=== PATIENT | female | born 1935 | race Caucasian/White ===

== ENCOUNTER → 2018-03-29 12:22 | Outpatient (CLI) | payer MEDICARE, OTHER, SELFPAY | PROVIDERS: Family Provider Physician Assistant; PCP Physician Assistant; Visit Provider Physician Assistant | DX: R30.0 Dysuria (principal) | CPT/HCPCS: 87086 ==

== ENCOUNTER → 2018-11-30 15:02 | Outpatient (CLI) | payer MEDICARE, OTHER, SELFPAY ==
[2018-11-30 15:56] LABS: Add Manual Diff / Slide Review NO; Basophils Absolute Auto 0 /uL (0-100); Basophils Percent Auto 0.6 % (0-2); Eosinophils Absolute Auto 100 /uL (0-450); Eosinophils Percent Auto 1.4 % (2-4); Hematocrit 42.5 % (36-46); Hemoglobin 14.2 g/dL (12.0-16.0); Lymphocytes Absolute Auto 1500 /uL (1100-4500); Lymphocytes Percent Auto 23.4 % (25-40); Mean Corpuscular HGB Conc 33.5 % (30-36); Mean Corpuscular Hemoglobin 33.2 PG (26-34); Mean Corpuscular Volume 99.2 fL (80-100); Monocytes Absolute Auto 600 /uL (0-900); Monocytes Percent Auto 9.5 % (3-14); Neutrophils Absolute Auto 4200 /uL (1500-7000); Neutrophils Percent Auto 65.1 % (50-75); Platelet Count 374 X10^3/uL (150-400); Red Blood Cell Count 4.29 X10^6/uL (4.0-5.2); Red Cell Distribution Width 13.8 % (11.6-14.8); White Blood Cell Count 6.5 X10^3/uL (4.5-11.0)
[2018-11-30 16:06] LABS: Carbon Dioxide 28 mmol/L (22-32); Chloride 101 mmol/L (98-107); HEMOLYSIS < 15 (0-50); Potassium 4.2 mmol/L (3.4-5.1); Sodium 140 mmol/L (137-145)
== END ==
PROVIDERS: PCP Physician Assistant; Visit Provider Orthopaedic Surgery
DX: M16.10 Unilateral primary osteoarthritis, unspecified hip (principal); Z01.818 Encounter for other preprocedural examination; Z01.812 Encounter for preprocedural laboratory examination
CPT/HCPCS: 80051; 85025; 93005

== ENCOUNTER 2018-12-31 08:15 | Inpatient (IN) | payer MEDICARE, OTHER, SELFPAY ==
[2018-12-17 14:02] VITALS: BMI 30.1
[2018-12-31] VITALS (14 sets, daily range): BP systolic 106–184; BP diastolic 50–84; PULSE 58–71; RESP 9–21; TEMP 35.7–36.6; O2SAT 94–99; BMI 30.1
--- NOTE | 2018-12-31 06:00 | DI.RAD.S_ITS ---
PROCEDURE: XR HIP W PEL IF DONE RT 2V INDICATIONS: SUSAN, right TECHNIQUE: AP pelvis and lateral view of the right hip acquired. COMPARISON: [facility], JOSELITO, HIP 2V LEFT, 01/06/2015, 10:04. [facility], CR, XR PELVIS WITH LATERAL HIP RIGHT, 05/30/2018, 14:19. FINDINGS: Bones: Patient is status post right hip arthroplasty, with hardware components in expected positions. The hip joint appears congruent. Left hip arthroplasty is stable. The visualized bony structures appear intact. Soft tissues: Overlying postoperative changes are noted. No suspicious soft tissue densities. IMPRESSION: Interval right hip arthroplasty. Dictated by: Mairsa Harrell M.D. on 12/31/2018 at 13:01 Approved by: Marisa Harrell M.D. on 12/31/2018 at 13:02
[2018-12-31] MEDS: ACETAMINOPHEN 325 MG TABLET 975 MG PO (08:45)
[2018-12-31] MEDS: LACTATED RINGERS 1,000 ML 42 ML IV (08:45)
[2018-12-31] MEDS: PREGABALIN 75 MG CAPSULE PO (08:46)
--- NOTE | 2018-12-31 09:54 | PM.PREOP ---
Pre-operative Note Interval Note History & Physical reviewed/Exam performed by Physician: Yes Changes to H&P: No
[2018-12-31] MEDS: CLINDAMYCIN 900 MG/50 ML PIGGYBACK 50 MG IV ×2 (10:30→19:51)
--- NOTE | 2018-12-31 11:11 | SUR.OPER ---
Lateral on padded OR bed. Gel axillary roll. Arms secured on padded armboard with pillow supporting top arm. Padded hip positioner braces x4 - anterior and posterior chest and pelvis. Additional gel pad used anterior pelvis. Gel pad under bottom leg from knee to foot and secured with tape over sheet.
[2018-12-31] MEDS: ROPIVACAINE 0.5% PF 5 MG/ML 20ML AMP 60 ML INJ (11:18)
[2018-12-31] MEDS: KETOROLAC 30 MG/ML VIAL IV (11:20)
[2018-12-31] MEDS: MORPHINE 4 MG/ML INJ INJ (11:20)
[2018-12-31] MEDS: TRANEXAMIC ACID 1,000 MG VIAL 1000 MG INJ ×2 (11:22→11:42)
--- NOTE | 2018-12-31 12:13 | PM.OP.1 ---
Operative Date/Time/Diagnoses Date of procedure: 12/31/18 Time of procedure: 12:13 Pre-op diagnosis: Right hip degenerative joint disease Post-op diagnosis: same Procedure & Clinicians Procedure: Right total hip arthroplasty (CPT code 03001 with clinical data assistant) Same procedure as scheduled: Yes Indications: Patient is an 83-year-old female with severe right hip DJD. The patient has pain with activities and at rest, limited ambulation and activity tolerance, difficulties with ADLs, and failure of conservative treatment. We have discussed the nature of condition, treatment options, risks and benefits, and patient elects to proceed with total hip arthroplasty and gives informed consent. Surgeon: Pascual Weiss Buckle Stringer: Deshaun Nash Anesthesia Type: General and Spinal Operative Notes Closure Type: primary Specimen(s): none sent Prosthetic devices, grafts, tissues, transplants, or devices: Acetabulum: Trujillo and Nephew R3 acetabular component size 56 mm Femoral component: Trujillo [employer] Nephew Anthology stem size 8 with high offset Femoral head: 36 mm + 0 cobalt chrome Estimated Blood Loss (mL): 150 Procedure in detail: After satisfaction induction of anesthetic, and administration of IV antibiotics, the patient was positioned in the lateral decubitus position with all bony prominences well padded and pelvic position secured using a hip soil chemist positioning device. Right hip and lower extremity prepped and draped in the usual sterile fashion, 1st dose of intravenous tranexamic acid was administered, then a longitudinal incision was created centered over the greater trochanter and carried sharply through the skin and subcutaneous tissues down to the fascia byron which was divided longitudinally and retracted with a Charnley retractor. External rotators visualize, cut, tagged, and retracted posteriorly, then the capsule was cut in a T-type fashion with the corners tagged and retracted. Hip was dislocated and femoral neck cut made according to preoperative templating. Acetabular retractors then placed, and the acetabular labrum and osteophytes were excised. The acetabulum was then sequentially reamed to 55 mm with an excellent circumferential ream and fit with the trial. The trial component was removed and a permanent size 56 mm Trujillo and Nephew R3 acetabular component was selected, positioned, and impacted with satisfactory position and fixation achieved. Permanent liner was then inserted with the elevated lip directed posteriorly. Soft tissue then removed off the lateral femoral neck in the lateral neck was entered using a box osteotome. T-handled reamers placed down the canal followed by sequential broaching to 8 with the final broach left in place for trial reduction which demonstrated excellent leg length, range of motion, and stability characteristics with a high offset neck and 36 mm +0 trial ball. The trial and broach were removed, and a permanent size 8 high offset Trujillo and Nephew Anthology stem was selected and inserted with excellent position and fixation achieved. Another trial reduction yielded the above characteristics so the trial ball was exchanged for a permanent 36 mm +0 cobalt chrome ball. The hip was irrigated and reduced and excellent leg length range of motion and stability characteristics were achieved and maintained. Periarticular tissues were infiltrated with ropivacaine, Marcaine, and Toradol. The hip was copiously irrigated, and the capsule repaired with #2 Ethibond, and the piriformis was repaired back to the greater trochanter with the same. Fascia byron closed with interrupted #1 Ethibond sutures, and the subcutaneous tissues were closed in 2 layers of 0 Vicryl and 2 0 Vicryl. Skin was closed with pinky and sterile dressings applied. Second dose of tranexamic acid was administered intravenously, and the anesthetic was terminated. Complications: none Condition: stable Disposition: PACU Plan for aftercare: Patient will be admitted to the acute care callahan, and anticipate discharge on postop day 1-2 with follow-up in office in 10-14 days. Outpatient physical therapy will be arranged and patient will continue to observe posterior hip precautions. Patient will continue use of postoperative Lovenox for 10 days postop.
--- NOTE | 2018-12-31 12:19 | P.OP_ITS ---
Operative Date/Time/Diagnoses Date of procedure: 12/31/18 Time of procedure: 12:13 Pre-op diagnosis: Right hip degenerative joint disease Post-op diagnosis: same Procedure & Clinicians Procedure: Right total hip arthroplasty (CPT code 55906 with occupational therapist assistants) Same procedure as scheduled: Yes Indications: Patient is an 83-year-old female with severe right hip DJD. The patient has pain with activities and at rest, limited ambulation and activity tolerance, difficulties with ADLs, and failure of conservative treatment. We have discussed the nature of condition, treatment options, risks and benefits, and patient elects to proceed with total hip arthroplasty and gives informed consent. Surgeon: Pascual Weiss Audiologist: Deshaun Nash Anesthesia Type: General and Spinal Operative Notes Closure Type: primary Specimen(s): none sent Prosthetic devices, grafts, tissues, transplants, or devices: Acetabulum: Trujillo and Nephew R3 acetabular component size 56 mm Femoral component: Trujillo and Nephew Anthology stem size 8 with high offset Femoral head: 36 mm + 0 cobalt chrome Estimated Blood Loss (mL): 150 Procedure in detail: After satisfaction induction of anesthetic, and administration of IV antibiotics, the patient was positioned in the lateral decubitus position with all bony prominences well padded and pelvic position secured using a hip caul puller positioning device. Right hip and lower extremity prepped and draped in the usual sterile fashion, 1st dose of intravenous tranexamic acid was administered, then a longitudinal incision was created centered over the greater trochanter and carried sharply through the skin and subcutaneous tissues down to the fascia byron which was divided longitudinally and retracted with a Charnley retractor. External rotators visualize, cut, tagged, and retracted posteriorly, then the capsule was cut in a T-type fashion with the corners tagged and retracted. Hip was dislocated and femoral neck cut made according to preoperative templating. Acetabular retractors then placed, and the acetabular labrum and osteophytes were excised. The acetabulum was then sequentially reamed to 55 mm with an excellent circumferential ream and fit with the trial. The trial component was removed and a permanent size 56 mm Trujillo and Nephew R3 acetabular component was selected, positioned, and impacted with satisfactory position and fixation achieved. Permanent liner was then inserted with the elevated lip directed posteriorly. Soft tissue then removed off the lateral femoral neck in the lateral neck was entered using a box osteotome. T- handled reamers placed down the canal followed by sequential broaching to 8 with the final broach left in place for trial reduction which demonstrated excellent leg length, range of motion, and stability characteristics with a high offset neck and 36 mm +0 trial ball. The trial and broach were removed, and a permanent size 8 high offset Trujillo and Nephew Anthology stem was selected and inserted with excellent position and fixation achieved. Another trial reduction yielded the above characteristics so the trial ball was exchanged for a permanent 36 mm +0 cobalt chrome ball. The hip was irrigated and reduced and excellent leg length range of motion and stability characteristics were achieved and maintained. Periarticular tissues were infiltrated with ropivacaine, Marcaine, and Toradol. The hip was copiously irrigated, and the capsule repaired with #2 Ethibond, and the piriformis was repaired back to the greater trochanter with the same. Fascia byron closed with interrupted #1 Ethibond sutures, and the subcutaneous tissues were closed in 2 layers of 0 Vicryl and 2 0 Vicryl. Skin was closed with pinky and sterile dressings applied. Second dose of tranexamic acid was administered intravenously, and the anesthetic was terminated. Complications: none Condition: stable Disposition: PACU Plan for aftercare: Patient will be admitted to the acute care callahan, and antic ipate discharge on postop day 1-2 with follow-up in office in 10-14 days. Outpatient physical therapy will be arranged and patient will continue to observe posterior hip precautions. Patient will continue use of postoperative Lovenox for 10 days postop.
--- NOTE | 2018-12-31 12:31 | SUR.PHASEI ---
Report called to floor. Awake/drowsy, Dr. Mcpherson spoke with patient. Continues to deny pain/nausea, ice chips given.
--- NOTE | 2018-12-31 12:56 | SUR.PHASEI ---
1247 to room 228. bed down and locked, call light within reach, clothing bag to closet. Patient awake/drowsy, oriented, status unchanged. SCD's on. No questions/concerns from staff or patient.
[2018-12-31] MEDS: LACTATED RINGERS 1,000 ML 125 ML IV ×2 (13:17→21:58)
--- NOTE | 2018-12-31 14:33 | PT.IPTN ---
Current Diagnoses Unilateral primary osteoarthritis, right hip (12/31/18) Surgery Performed Operation Date: 12/31/18 10:15 Actual Procedures p Total Hip Arthroplasty(Right) - Pascual Weiss MD Physical Therapy Treatment Note M3 PT-IP Subjective Start: 12/31/18 14:31 Freq: NEEDED Status: Active Protocol: Document 12/31/18 14:10 HH (Rec: 12/31/18 14:33 [id number]) Subjective Physical Therapy Visit Type Type Administrative Note Visit Start Time 14:10 Notes Post op R SUSAN posterior approach. Pt arrived at 1330 to AC unit. Pt states she is drowsy and unable to move her R LE yet. Post op booklet was given. Reattempt later this pm / tomorrow am depends on pt's status.
--- NOTE | 2018-12-31 15:18 | PC.NURSE ---
pt arrived from PACU, R eyelid was red and open, apperared to be a skin tear. anesthesiologist in surgery, fax sent to OR to notify him and obtain orders as pt states this is painful. dressing CDI on R hip, no sensation from knees to feet on arrival after duramorph spinal. friend at bedside. Belongings (keys, DL, leonard and cream) place in safe.
--- NOTE | 2018-12-31 16:32 | PT.IPTN ---
Current Diagnoses Unilateral primary osteoarthritis, right hip (12/31/18) Surgery Performed Operation Date: 12/31/18 10:15 Actual Procedures p Total Hip Arthroplasty(Right) - Pascual Weiss MD Physical Therapy Treatment Note M3 PT-IP Subjective Start: 12/31/18 14:31 Freq: NEEDED Status: Active Protocol: Document 12/31/18 16:15 HH (Rec: 12/31/18 16:32 [id number]) Subjective Physical Therapy Visit Type Type Administrative Note Visit Start Time 14:15 Notes Pt is currently sleeping deeply upon assessment. Woke pt up but she still c/o not that oriented. R LE has full sensation but insufficient motor control at R hip and knee. Reattempt PT in tomorrow AM.
[2018-12-31] MEDS: ASPIRIN EC 81 MG TABLET PO (21:40)
[2018-12-31] MEDS: azaTHIOprine 50 MG TABLET 100 MG PO (21:41)
[2019-01-01 03:00] VITALS: BP 167/74; PULSE 66; RESP 18; TEMP 36.6; O2SAT 94
[2019-01-01 05:50] LABS: Hematocrit 34.2 % (36-46); Hemoglobin 11.7 g/dL (12.0-16.0)
[2019-01-01] MEDS: LEVOTHYROXINE 112 MCG TABLET PO (06:18)
[2019-01-01] MEDS: ACETAMINOPHEN 325 MG TABLET 975 MG PO ×3 (06:18→21:02)
[2019-01-01] MEDS: LACTATED RINGERS 1,000 ML 125 ML IV (06:24)
--- NOTE | 2019-01-01 07:26 | P.PN_ITS ---
Subjective Date Patient Seen: 01/01/19 Interval history: Patient seen bedside s/p R. SUSAN by Dr. Weiss on 01/01/19. P atient is POD #1. Pain is well controlled, denies nausea/vomiting. Has not been up with PT yet. Exam Vital Signs (past 8 hours): - 01/01/19 03:00 Temperature 98 F Pulse Rate 66 Respiratory Rate 18 Blood Pressure 167/74 H Pulse Oximetry 94 Oxygen Delivery Method Room Air Oxygen Flow Rate 0 Narrative Exam Narrative: Well-developed, well-nourished, no acute distress. Alert and oriented to person, place, and time. Dressing on operative hip is clean, dry, and intact with no signs of drainage. Minimal erythema and generalized swelling around the surgical site. Neurovascularly intact in the operative extremity with a soft and compressible calf. Range of motion of the operative ankle intact. Objective Labs Result Diagrams: 01/01/19 05:12 Labs: Laboratory Results - last 24 hr 01/01/19 05:12 Hgb 11.7 L Hct 34.2 L Assessment & Plan Post-op Postoperative Procedures Operation Date: 12/31/18 10:15 Actual Procedures Side Surgeon p Total Hip Arthroplasty Right Pascual Weiss MD 1. POD #1 s/p above procedure-PT, pain control. 2. Postoperative anemia due to acute blood loss during surgery-H/H stable at thi s time. Add iron/vitamin C supplements. Stop ASA but continue lovenox Dispo-SNF in 3 days Quality VTE Deep Vein Thrombosis/Pulmonary Embolism Present on Admission: No
[2019-01-01 08:00] VITALS: BP 137/73; PULSE 68; RESP 18; TEMP 36.4; O2SAT 97
[2019-01-01] MEDS: dilTIAZem CD 240 MG CAP PO (09:26)
[2019-01-01] MEDS: LACTOBACILLUS ACIDOPHILUS TABLET 1 EACH PO (09:26)
[2019-01-01] MEDS: ASCORBIC ACID 500 MG TABLET PO (09:26)
[2019-01-01] MEDS: azaTHIOprine 50 MG TABLET 100 MG PO ×2 (09:26→21:03)
[2019-01-01] MEDS: FERROUS SULFATE 325 MG TABLET PO (09:26)
[2019-01-01] MEDS: OXYCODONE IR 5 MG TABLET PO ×2 (09:27→21:11)
[2019-01-01] MEDS: CHOLECALCIFEROL (VITAMIN D3) 5,000 UNIT TABLET 5000 UNIT PO (09:27)
[2019-01-01] MEDS: ENOXAPARIN 40 MG/0.4 ML SYRINGE SUBCUT (09:28)
--- NOTE | 2019-01-01 10:28 | CM.DPC ---
DCP Cont: Faxed initial referral for review to [facility] at fax # [phone]. Fax confirmation scanned in. Jackelyn Rodriguez, [facility] [place]
--- NOTE | 2019-01-01 11:11 | CM.DANOTE ---
Discharge Planning/Care Management DCP: assessment: case received, EMR reviewed and met with pt. Introduced self and role. Pt is an 83 year old female who lives alone, has a daughter who will be coming to stay with her after her planned snf rehab. Admitted 12/31 for a planned R SUSAN. Surgeon: Dr. Weiss Payer: Medicare and [facility] P Admission status: INPT/confirmed by [facility] TENA Handy. Pt says her daughter is encouraging her to have a short snf rehab stay before she comes back home and pt agrees this would be best. SNF choice list: discussed: decision: [facility] (pt went there for rehab in 2016 post L SUSAN). Discussed in Team Rounds with ortho ANURAG Ramirez. Referral packet faxed to [facility] by [facility] Jackelyn. Spoke with Lynn/HANG. She has reviewed case. Needs nursing notes to assess for cognition altho she is assured that pt is A/O at baseline. She will wait for this and then give final ok re ? of their acceptance. P: [facility] at d/c (January 03 or >) Need: PASRR and final ok from [facility] team. CM Discharge Assessment Start: 01/01/19 11:03 Freq: Status: Active Protocol: Document 01/01/19 11:03 ITV (Rec: 01/01/19 11:11 ITV [id number]) Discharge Planning Assessment Advance Directives? Yes Advance Directives on File Yes History Provided By Patient Medical Record Has Patient been admitted in last 30 No days? Prior Living Arrangements Mobile home Household Members none Independent with ADL's Yes Is patient alert and oriented? Yes Patient/Family Preference Long-Term Facility Discharge Plan Long-Term Facility Referrals Initiated Long-Term Whiteboard Updated in Patient Room with Yes name and ext. # of Paint Tester Review Status In Process Next Review Type Continued Stay Review Pre-Anesthesia Assessment Start: 12/17/18 14:02 Freq: Status: Active Protocol: Document 12/17/18 14:02 CAB (Rec: 12/17/18 14:43 CAB [id number]) Pre-Anesthesia Assessment PAC Comment No tape r/t Bullous pemphigus history, skin blisters, tearsPt seems mildly confused, denies any difficulties Patient Information Reviewed Via Phone Assessment Assessment Completed With Patient Diagnostic Results BMP/CMP CBC EKG Comment Labs/ECG @ [facility] 11/30/18 Primary Care Provider Kellie Martínez Seen Specialist in Last 12 Months Yes Specialist Seen Spectroscopist Orthopedist Primary Language Swiss Toddler Guide Required No Height 166.37 cm Weight 83.461 kg Body Mass Index (BMI) 30.1 Hearing Ability Normal Visual Assist Glasses Dentition Type Teeth, Natural Present Dental Implants Barriers to Learning None Comment Pt seems mildly confused, denies any difficulties Hx Anesthesia Reactions Yes: My daughter said They had trouble getting me awake LT SUSAN Hx Family Anesthesia Reaction No Hx Malignant Hyperthermia No Hx Blood Transfusions No Anesthesia Review Requested No Ski Lift Operator No alcohol intake current alcohol intake frequency holidays/special occasions only Smoking Status Never smoker Substance Use Type does not use Pain Present Pain Reported Musculoskeletal Symptoms Abnormal Gait Back Pain Difficulty Walking Joint Pain Muscle Cramps History of Falling (Recent or History of No ) Patient is completely paralyzed or No completely immobile Prosthesis or Orthotic Device Cane Is patient on oxygen? No Does patient have VAN/SOB No Hx Sleep Apnea No Currently Taking a Beta Danielle No Can You Climb a Flight of Stairs Without Yes SOB Hx Chest Pain No Hx SOB No Hx Syncope or Dizziness No Anti-Coagulant Therapy No Has a Weatherization Operations Manager No Cardiac Testing No Hx Pacemaker/ICD No Pacemaker Rep Required? No Diet Type At Home Regular dysphagia Yes Bladder Pattern Nocturia Urinary Catheter Present No Hx Urinary Self Catheterization No Diabetes No Patient No Lactating No Hx Drug Resistant Organism No Presence of External or Internal Medical Yes: Left hip prosthesis Devices Have you traveled outside the [facility] in the last 30 days? Marital Status Lives With none Prior Living Arrangements Mobile home Support System Child/Children Patient Discharge Plan Description Return Home Feels Safe in Current Environment Yes Been Physically Hurt or Threatened By a No Person in Current Environment Do you have thoughts of harming yourself None or others? Are you currently considering suicide? No Do you have a plan to hurt yourself or No Plan others? Do You Have Any Spiritual Beliefs That No May Affect Your HC Choices? Do You Have Any Cultural Practices That No May Affect Your HC Choices? Comment Paul Who Can We Speak to About Patient's Care Family, friends Identifying Code for Release of Patient Declines to issue Information Health Care Proxy/Next of Kin Radha (daughter) Health Care Proxy Emergency Contact Name Radha (daughter) Emergency Contact Advance Directives? Yes Advance Directives on File Yes PAC Instructions Do not shave/clip surgical site Durable medical equipment Medications to take/avoid Nasal antibiotic No ETOH/petroleum product on skin DOS Pre-surgical wash Sturdy shoes/comfortable clothes Do not bring valuables and remove jewelry
[2019-01-01 12:00] VITALS: BP 148/70; PULSE 70; RESP 18; TEMP 36.6; O2SAT 97
--- NOTE | 2019-01-01 13:25 | PT.IIE ---
Addendum entered and electronically signed by Jaret Patel, PT 01/02/19 13:40: Under current condition, pt procedure was originally inadvertently listed as a R TKA. This has been changed to a R SUSAN. 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) Status post surgery (09/09/11) Medical History (Last Updated 12/17/18 @ 14:42 by Cammy Chakraborty RN) Difficulty swallowing (Acute) Fragile skin (Acute) GERD (gastroesophageal reflux disease) (Acute) Sinus drainage (Acute) TIA (transient ischemic attack) (Acute ~2012) Eczema (Chronic Unknown) Hypertension (Chronic Unknown) Hypothyroidism (Chronic Unknown) Osteoarthritis (Chronic Unknown) Physical Therapy Inpatient Evaluation/Re-Eval M1 PT/OT-IP Prior Functional Status Start: 12/31/18 14:31 Freq: NEEDED Status: Active Protocol: Document 01/01/19 09:45 DCW (Rec: 01/01/19 13:25 DC [id number]) Medical Review Prior Functional Status Medical History Reviewed Yes Social History Household Members none Living Arrangements Mobile home Number of Stairs To Enter/Railing? 7 [place]ET[place] /c left ascending rail Home Environment High Toilet Home Equipment Front Wheel Walker Straight Cane Raised Toilet Seat w/Armrests Shower Seat with Backrest M2 PT-IP Current Condition Start: 12/31/18 14:31 Freq: NEEDED Status: Active Protocol: Document 01/01/19 09:45 DCW (Rec: 01/01/19 13:25 DCW [id number]) Physical Therapy Current Condition Current Condition Evaluation Date 01/01/19 Treatment Diagnosis R TKA Onset Date 12/31/18 Precautions Posterior Hip Precautions No Hip Flexion > 90 degrees No Hip Internal Rotation No Hip Adduction Weight Bearing Status Weight Bearing Status Weight Bear as Tolerated M3 PT-IP Subjective Start: 12/31/18 14:31 Freq: NEEDED Status: Active Protocol: Document 01/01/19 09:45 DCW (Rec: 01/01/19 13:25 DCW [id number]) Subjective Physical Therapy Visit Type Type Initial Evaluation Visit Start Time 09:45 Visit Stop Time 10:24 Total Visit Minutes 39 Notes Pt underwent a right TKA on after failure of conservative therapy for hip pain secondary to osteoporosis . Number of TRIM AND BURR OPERATOR Visits 0 Physical Therapy Visit Comments Patient Comments Pt reports her pain has been pretty well controlled, and she is looking forward to getting up and moving around. Therapy Pain Assessment Pain When Pain Assessed At Rest Pain Present Pain Present Pain Reported Location Right Hip Intensity 3 Scale Used Numeric (1 - 10) Description Throbbing M4 PT-IP Mobility and Gait Start: 12/31/18 14:31 Freq: NEEDED Status: Active Protocol: Document 01/01/19 09:45 DCW (Rec: 01/01/19 13:25 DCW [id number]) PT-Bed Mobility Assessment Rolling Type of Rolling Log Rolling Roll to Right Level of Assist Standby Assistance Supine to Sit Supine to Sit Standby Assistance Scooting Scooting to Edge of Bed Independent PT-Transfer Assessment Sit to and From Stand Sit to and from Stand Standby Assistance Equipment Transfer Assistive Device Bed Rail Gait Belt Front Wheeled Walker Orthotic/Prosthetic Devices or Brace: No Transfers Transfer Destination Bed Chair Toilet Transfer Technique Stand Step Pivot Transfer Ability Level of Assist Standby Assistance Comments Mobility Comments verbal cues to maintain hip precautions Gait Assessment Gait Gait Assistance Required: Standby Assistance Distance (Feet) 300 Able to Maintain Weight Bearing Status Yes During Gait Assistive Devices Assistive Device Gait Belt Front Wheeled Walker Orthotic/Prosthetic Devices or Brace: No Gait Deviations General Gait Pattern Decreased Stride Length Flexed Trunk Factors Limiting Gait Function Factors Limiting Gait Function Pain Comments Gait Comments Pt ambulated well, no concerns with her current gait pattern . Pt showed appropriate step- through gait. Stair Climbing Assessment Comments Stair Climbing Comments Not assessed PT-Balance Assessment Sitting Balance and Reactions Static Sitting Balance Ability Normal Dynamic Sitting Balance Ability Normal Standing Balance and Reactions Static Standing Balance Ability Good Dynamic Standing Balance Ability Good M5 PT-IP Objective Assessments Start: 12/31/18 14:31 Freq: NEEDED Status: Active Protocol: Document 01/01/19 09:45 DCW (Rec: 01/01/19 13:25 [facility] [id number]) Orientation Orientation/Cognition Orientation Name Birthday Month Date Year Place Situation Language Function Ability No Deficits Noted Safety Awareness Understands Safety Issues Memory Description No Deficits Noted Gross Range of Motion Upper Extremity ROM Assessment Within Functional Limits Lower Extremity ROM Assessment Right Impaired Impairments Pt able to move hip within limits of hip precautions Strength Upper Extremity Strength Assessment Within Functional Limits Lower Extremity Strength Assessment Left Impaired M6 PT-IP Treatment Start: 12/31/18 14:31 Freq: NEEDED Status: Active Protocol: Document 01/01/19 09:45 DCW (Rec: 01/01/19 13:25 [facility] [id number]) Physical Therapy Treatment Exercises Exercises Ankle Pumps Gluteal Sets Quad Sets Heel Slides Supine Hip Abduction Education Education Provided Precautions Post-Op Packet M7 PT-IP Assessment and Plan Start: 12/31/18 14:31 Freq: NEEDED Status: Active Protocol: Document 01/01/19 09:45 DC (Rec: 01/01/19 13:25 [facility] [id number]) PT Summary Assessment and Plan Potential Rehabilitation Potential Excellent Status of Condition at Evaluation Stable Summary Impairments Pain Strength Gait Assessment Summary Pt presents POD #1 doing very well. Pt exhibits good pain control, and is able to get up and ambulate in the hallway using FWW with SBA. Pt shows no safety concerns, and was able to recite her hip precautions. Pt reports she has been doing some of her post-op exercises already. Unable to test pt on stairs due to time constraints, pt should be tested next visit to determine pt's ability to return home, as she lives alone and will need to ascend 7 steps to enter her home. Goals Bed Mobility Goal Independent Transfer Goal Independent Gait Goal Independent Front Wheel Walker Gait Distance 500 Other Goals Ascend/Descend 3 steps x2 /c L rail Days to Meet Goals 2 Frequency of Treatment Frequency Of Treatment Twice a Day Treatment Plan Physical Therapy Treatment Plan Gait Training Therapeutic Exercise Post Op Education Other Recommendations and Next Treatment Stairs, Ambulation, review Focus post-op TherEx Recommendations To Nursing Amount of Assist Needed Standby Assistance Discharge Recommendations PT Discharge Recommendations Home SNF Rehab Other Discharge Recommendations Home vs SNF pending pt's ability to do stairs
[2019-01-01 15:50] VITALS: BP 133/77; PULSE 66; RESP 20; TEMP 36.6; O2SAT 99
--- NOTE | 2019-01-01 16:08 | PT.IPTN ---
Current Diagnoses Unilateral primary osteoarthritis, right hip (12/31/18) Surgery Performed Operation Date: 12/31/18 10:15 Actual Procedures p Total Hip Arthroplasty(Right) - Pascual Weiss MD Physical Therapy Treatment Note M2 PT-IP Current Condition Start: 12/31/18 14:31 Freq: NEEDED Status: Active Protocol: Document 01/01/19 09:45 DCW (Rec: 01/01/19 13:25 DCW [id number]) Physical Therapy Current Condition Current Condition Evaluation Date 01/01/19 Treatment Diagnosis R TKA Onset Date 12/31/18 Precautions Posterior Hip Precautions No Hip Flexion > 90 degrees No Hip Internal Rotation No Hip Adduction Weight Bearing Status Weight Bearing Status Weight Bear as Tolerated M3 PT-IP Subjective Start: 12/31/18 14:31 Freq: NEEDED Status: Active Protocol: Document 01/01/19 14:00 CLB (Rec: 01/01/19 16:08 CLB [id number]) Subjective Physical Therapy Visit Type Type Treatment Note Visit Start Time 14:00 Visit Stop Time 14:30 Total Visit Minutes 30 Number of ENERGY AUDITOR Visits 1 Physical Therapy Visit Comments Patient Comments Pt willing to do therapy. Therapy Pain Assessment Pain When Pain Assessed During Mobility Pain Present Pain Present Pain Reported Location Right Hip Intensity 5 Scale Used Numeric (1 - 10) M4 PT-IP Mobility and Gait Start: 12/31/18 14:31 Freq: NEEDED Status: Active Protocol: Document 01/01/19 14:00 CLB (Rec: 01/01/19 16:08 CLB [id number]) PT-Bed Mobility Assessment Supine to Sit Supine to Sit Standby Assistance Scooting Scooting to Edge of Bed Minimal Assistance PT-Transfer Assessment Sit to and From Stand Sit to and from Stand Standby Assistance Equipment Transfer Assistive Device Gait Belt Front Wheeled Walker Orthotic/Prosthetic Devices or Brace: No Transfers Transfer Destination Bed Transfer Technique Stand Step Pivot Transfer Ability Level of Assist Standby Assistance Comments Mobility Comments verbal cues to maintain hip precautions and Min A with use of draw sheet to EOB. Gait Assessment Gait Gait Assistance Required: Standby Assistance Distance (Feet) 300 Able to Maintain Weight Bearing Status Yes During Gait Assistive Devices Assistive Device Gait Belt Front Wheeled Walker Orthotic/Prosthetic Devices or Brace: No Gait Deviations General Gait Pattern Decreased Stride Length Flexed Trunk Factors Limiting Gait Function Factors Limiting Gait Function Limited Range of Motion Pain Comments Gait Comments Pt continues to ambulate with good gait quality with cues for safety awareness with obstacles in hallway. Stair Climbing Assessment Comments Stair Climbing Comments Pt did not feel ready to do stairs. M5 PT-IP Objective Assessments Start: 12/31/18 14:31 Freq: NEEDED Status: Active Protocol: Document 01/01/19 09:45 DCW (Rec: 01/01/19 13:25 DCW [id number]) Orientation Orientation/Cognition Orientation Name Birthday Month Date Year Place Situation Language Function Ability No Deficits Noted Safety Awareness Understands Safety Issues Memory Description No Deficits Noted Gross Range of Motion Upper Extremity ROM Assessment Within Functional Limits Lower Extremity ROM Assessment Right Impaired Impairments Pt able to move hip within limits of hip precautions Strength Upper Extremity Strength Assessment Within Functional Limits Lower Extremity Strength Assessment Left Impaired M6 PT-IP Treatment Start: 12/31/18 14:31 Freq: NEEDED Status: Active Protocol: Document 01/01/19 14:00 CLB (Rec: 01/01/19 16:08 CLB [id number]) Physical Therapy Treatment Exercises Exercises Gluteal Sets Quad Sets Heel Slides Supine Hip Abduction Education Education Provided Precautions Post-Op Packet M7 PT-IP Assessment and Plan Start: 12/31/18 14:31 Freq: NEEDED Status: Active Protocol: Document 01/01/19 14:00 CLB (Rec: 01/01/19 16:08 CLB [id number]) PT Summary Assessment and Plan Potential Rehabilitation Potential Excellent Status of Condition at Evaluation Stable Summary Impairments Pain Strength Gait Assessment Summary Pt able to ambulate ~300ft with cues for safety awareness with obstacles in hallway. Pt needed SBA for supine-sit but required Min A to scoot to EOB. Pt stated she spoke with Dianne GILMORE and has set up going to [facility] due to lack of assistance at home as pt lives alone and would not be able to safely be alone at this time. Goals Bed Mobility Goal Independent Transfer Goal Independent Gait Goal Independent Front Wheel Walker Gait Distance 500 Other Goals Ascend/Descend 3 steps x2 /c L rail Days to Meet Goals 2 Frequency of Treatment Frequency Of Treatment Twice a Day Treatment Plan Physical Therapy Treatment Plan Gait Training Therapeutic Exercise Post Op Education Other Recommendations and Next Treatment ambulation, ther ex. Focus Recommendations To Nursing Amount of Assist Needed Standby Assistance Discharge Recommendations PT Discharge Recommendations SNF Rehab Other Discharge Recommendations SNF rehab as pt lives alone and has no assistance.
[2019-01-01 20:00] VITALS: BP 154/84; PULSE 67; RESP 22; TEMP 36.3; O2SAT 100
[2019-01-01 21:51] VITALS: O2SAT 97
[2019-01-02] VITALS (8 sets, daily range): BP systolic 105–176; BP diastolic 51–77; PULSE 67–80; RESP 16–18; TEMP 36.6–37.4; O2SAT 95–98
[2019-01-02] MEDS: LEVOTHYROXINE 112 MCG TABLET PO (06:03)
[2019-01-02] MEDS: dilTIAZem CD 240 MG CAP PO (08:30)
[2019-01-02] MEDS: azaTHIOprine 50 MG TABLET 100 MG PO ×2 (08:30→21:56)
[2019-01-02] MEDS: CHOLECALCIFEROL (VITAMIN D3) 5,000 UNIT TABLET 5000 UNIT PO (08:30)
[2019-01-02] MEDS: LACTOBACILLUS ACIDOPHILUS TABLET 1 EACH PO (08:30)
[2019-01-02] MEDS: ONDANSETRON 4 MG ODT PO (08:31)
[2019-01-02] MEDS: ASCORBIC ACID 500 MG TABLET PO (08:33)
[2019-01-02] MEDS: FERROUS SULFATE 325 MG TABLET PO (08:33)
[2019-01-02] MEDS: ENOXAPARIN 40 MG/0.4 ML SYRINGE SUBCUT (08:34)
[2019-01-02] MEDS: OXYCODONE IR 5 MG TABLET PO (08:40)
--- NOTE | 2019-01-02 10:30 | P.PN_ITS ---
Subjective Date Patient Seen: 01/02/19 Time Patient Seen: 10:28 Interval history: 83 year old female seen at bedside who is POD#2 s/p right total hip arthoplasty. She has been somewhat slow to mobilize, initially refusing PT this morning. She was later able to do some walking in the halls. She has had some increase in pain today that responded well to oxycodone. Voiding independently and tolerating food well. She reports no issues with chest pain, shortness of breath or calf tenderness. Exam Vital Signs (past 8 hours): - 01/02/19 04:30 01/02/19 08:00 01/02/19 09:23 Temperature 97.9 F 99 F Pulse Rate 73 80 76 Respiratory Rate 16 16 Blood Pressure 155/75 H 174/66 H 115/55 L Pulse Oximetry 96 97 Oxygen Delivery Method Room Air Oxygen Flow Rate 0 Narrative Exam Narrative: 83 year old female resting comfortably in bed in no acute distress. Alert and oriented. Dressing in place over right hip is clean, dry and intact with no visible drainage. Able to freely dorsiflex/plantar flex the foot. Sensation intact in distal extremity with 2+ distal pulses. Calves are soft and nontender bilat erally. Objective Labs Result Diagrams: 01/01/19 05:12 Assessment & Plan Post-op Postoperative Procedures Operation Date: 12/31/18 10:15 Actual Procedures Side Surgeon p Total Hip Arthroplasty Right Pascual Weiss MD 1. She continues to progress slowly post op. She has no support at home, daughter will be flying in next week but will have difficulty assisting with care. Likely discharge to [facility] tomorrow pending approval. 2. Continue to mobilize with PT. 3. Continue pain control. Quality VTE Deep Vein Thrombosis/Pulmonary Embolism Present on Admission: No
--- NOTE | 2019-01-02 10:30 | CM.DPC ---
Addendum entered by Gerda Solorzano R.N. 01/02/19 11:48: Emily came by to assess patient. Stated that they will be able to accept her. She will call back later today for a greens picker time tomorrow. As soon as this is confirmed, will let patient know. Addendum entered by Gerda Solorzano R.N. 01/02/19 10:43: Spoke to Emily at [facility]. She will be coming by today to see patient. She will check in at care management office. Original Note: DCP Cont: Called Emily at [facility] to follow up regarding accepting patient tomorrow. She is asking for nursing notes. Let her know that this bottle caser would send this over, along with latest prog note. Only noted one nursing note from 12-31. Sent this over, along with P.T. notes, and History and physical. Consulted with ortho PAC regarding plan. Let her know that she may be able to discharge to [facility] tomorrow, pending review. Emily at [facility] stated that patient has been there before. P: DCP to follow closely. Emily will call later today after reviewing and will also have time that they can pick her up as well. If further note is needed, will ask nurse if she can place a note for today. PASSR has already been completed. eGrda Solorzano RN/Commodity Management Specialist
--- NOTE | 2019-01-02 11:18 | PC.NURSE ---
Pt is A&Ox3, she states that she had 6/10 pain. Given 1 percolone and some zofran for nausea po. Pt able to eat breakfast this morning and ambulated with PT around 0930. She is using fww and tolerating well. Pt is Alert and compliant with all care. She is resting now comfortably in bed. Drssing to hip cdi, will be changed to water proof dressing before she is discharged.
--- NOTE | 2019-01-02 11:34 | PT.IPTN ---
Current Diagnoses Unilateral primary osteoarthritis, right hip (12/31/18) Surgery Performed Operation Date: 12/31/18 10:15 Actual Procedures p Total Hip Arthroplasty(Right) - Pascual Weiss MD Physical Therapy Treatment Note M2 PT-IP Current Condition Start: 12/31/18 14:31 Freq: NEEDED Status: Active Protocol: Document 01/01/19 09:45 DCW (Rec: 01/01/19 13:25 DCW [id number]) Physical Therapy Current Condition Current Condition Evaluation Date 01/01/19 Treatment Diagnosis R TKA Onset Date 12/31/18 Precautions Posterior Hip Precautions No Hip Flexion > 90 degrees No Hip Internal Rotation No Hip Adduction Weight Bearing Status Weight Bearing Status Weight Bear as Tolerated M3 PT-IP Subjective Start: 12/31/18 14:31 Freq: NEEDED Status: Active Protocol: Document 01/02/19 09:30 CLB (Rec: 01/02/19 11:34 CLB [id number]) Subjective Physical Therapy Visit Type Type Treatment Note Visit Start Time 09:30 Visit Stop Time 10:00 Total Visit Minutes 30 Number of CERTIFIED REAL ESTATE APPRAISER Visits 2 Physical Therapy Visit Comments Patient Comments Pt willing to do therapy. Therapy Pain Assessment Pain When Pain Assessed During Mobility Pain Present Pain Present Pain Reported Location Right Hip Intensity 3 Scale Used Numeric (1 - 10) M4 PT-IP Mobility and Gait Start: 12/31/18 14:31 Freq: NEEDED Status: Active Protocol: Document 01/02/19 09:30 CLB (Rec: 01/02/19 11:34 CLB [id number]) PT-Bed Mobility Assessment Sit to Supine Sit to Supine Minimal Assistance PT-Transfer Assessment Sit to and From Stand Sit to and from Stand Standby Assistance Equipment Transfer Assistive Device Gait Belt Front Wheeled Walker Orthotic/Prosthetic Devices or Brace: No Transfers Transfer Destination Bed Transfer Technique Stand Step Pivot Transfer Ability Level of Assist Standby Assistance Comments Mobility Comments Pt continues to require verbal cues for hip precaution with sit<>stand. And Min A of RLE into bed. Gait Assessment Gait Gait Assistance Required: Standby Assistance Distance (Feet) 150 Able to Maintain Weight Bearing Status Yes During Gait Assistive Devices Assistive Device Gait Belt Front Wheeled Walker Orthotic/Prosthetic Devices or Brace: No Gait Deviations General Gait Pattern Antalgic Flexed Trunk M5 PT-IP Objective Assessments Start: 12/31/18 14:31 Freq: NEEDED Status: Active Protocol: Document 01/01/19 09:45 DCW (Rec: 01/01/19 13:25 DCW [id number]) Orientation Orientation/Cognition Orientation Name Birthday Month Date Year Place Situation Language Function Ability No Deficits Noted Safety Awareness Understands Safety Issues Memory Description No Deficits Noted Gross Range of Motion Upper Extremity ROM Assessment Within Functional Limits Lower Extremity ROM Assessment Right Impaired Impairments Pt able to move hip within limits of hip precautions Strength Upper Extremity Strength Assessment Within Functional Limits Lower Extremity Strength Assessment Left Impaired M6 PT-IP Treatment Start: 12/31/18 14:31 Freq: NEEDED Status: Active Protocol: Document 01/02/19 09:30 CLB (Rec: 01/02/19 11:34 CLB [id number]) Physical Therapy Treatment Exercises Exercises Gluteal Sets Quad Sets Heel Slides Supine Hip Abduction Education Education Provided Precautions Other Treatments Other Treatment Performed seated knee flx/ext M7 PT-IP Assessment and Plan Start: 12/31/18 14:31 Freq: NEEDED Status: Active Protocol: Document 01/02/19 09:30 CLB (Rec: 01/02/19 11:34 CLB [id number]) PT Summary Assessment and Plan Potential Rehabilitation Potential Excellent Status of Condition at Evaluation Stable Summary Impairments Pain Strength Gait Assessment Summary Pt c/o increased pain today compared to yesterday but rated her pain 3/10. Pt recalled 2/3 precautions. Pt is steady with gait requiring cues during turns to prevent hip IR. Pt would benefit from SNF rehab to improve safety and functional independence. Goals Bed Mobility Goal Independent Transfer Goal Independent Gait Goal Independent Front Wheel Walker Gait Distance 500 Other Goals Ascend/Descend 3 steps x2 /c L rail Days to Meet Goals 2 Frequency of Treatment Frequency Of Treatment Twice a Day Treatment Plan Physical Therapy Treatment Plan Gait Training Therapeutic Exercise Post Op Education Other Recommendations and Next Treatment ambulation, ther ex. Focus Recommendations To Nursing Amount of Assist Needed Standby Assistance Discharge Recommendations PT Discharge Recommendations SNF Rehab Other Discharge Recommendations SNF rehab as pt lives alone and has no assistance.
--- NOTE | 2019-01-02 11:56 | CM.DPC ---
DCP Cont: Emily from [facility] called back. 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 Went ahead and updated patient. Patient alert and pleasant. She stated that she remembers some of the physical therapists at [facility] when she was there before. She stated that she had her other hip done approximately 3 years ago, and went thee then. P: DCP to follow up with ortho in the morning to ensure that discharge orders are completed. Will complete PASSR now, so it will be ready for tomorrow. Will update nurse in the morning regarding discharge to [facility]. Gerda Solorzano RN/[employer]b Net Programmer
[2019-01-02] MEDS: ACETAMINOPHEN 325 MG TABLET 975 MG PO ×2 (14:16→21:56)
--- NOTE | 2019-01-02 14:45 | PT.IPTN ---
Current Diagnoses Unilateral primary osteoarthritis, right hip (12/31/18) Surgery Performed Operation Date: 12/31/18 10:15 Actual Procedures p Total Hip Arthroplasty(Right) - Pascual Weiss MD Physical Therapy Treatment Note M2 PT-IP Current Condition Start: 12/31/18 14:31 Freq: NEEDED Status: Active Protocol: Document 01/01/19 09:45 DCW (Rec: 01/01/19 13:25 DCW [id number]) Physical Therapy Current Condition Current Condition Evaluation Date 01/01/19 Treatment Diagnosis R SUSAN Onset Date 12/31/18 Precautions Posterior Hip Precautions No Hip Flexion > 90 degrees No Hip Internal Rotation No Hip Adduction Weight Bearing Status Weight Bearing Status Weight Bear as Tolerated M3 PT-IP Subjective Start: 12/31/18 14:31 Freq: NEEDED Status: Active Protocol: Document 01/02/19 14:45 GGD (Rec: 01/02/19 15:06 GGD [id number]) Subjective Physical Therapy Visit Type Type Treatment Note Visit Start Time 14:05 Visit Stop Time 14:45 Total Visit Minutes 40 Number of REPORTS ANALYSIS MANAGER Visits 3 Physical Therapy Visit Comments Patient Comments Pt states she needs to use the bathroom Therapy Pain Assessment Pain When Pain Assessed During Mobility Pain Present Pain Present Pain Reported Location Right Hip Intensity 4 Scale Used Numeric (1 - 10) M4 PT-IP Mobility and Gait Start: 12/31/18 14:31 Freq: NEEDED Status: Active Protocol: Document 01/02/19 14:45 GGD (Rec: 01/02/19 15:06 GGD [id number]) PT-Bed Mobility Assessment Sit to Supine Sit to Supine Minimal Assistance Scooting Scooting to Edge of Bed Standby Assistance PT-Transfer Assessment Sit to and From Stand Sit to and from Stand Standby Assistance Equipment Transfer Assistive Device Gait Belt Front Wheeled Walker Orthotic/Prosthetic Devices or Brace: No Transfers Transfer Destination Bed Toilet Transfer Ability Level of Assist Contact Guard Assistance Gait Assessment Gait Gait Assistance Required: Standby Assistance Distance (Feet) 200 Able to Maintain Weight Bearing Status Yes During Gait Assistive Devices Assistive Device Gait Belt Front Wheeled Walker Orthotic/Prosthetic Devices or Brace: No Gait Deviations General Gait Pattern Antalgic Flexed Trunk M5 PT-IP Objective Assessments Start: 12/31/18 14:31 Freq: NEEDED Status: Active Protocol: Document 01/01/19 09:45 DCW (Rec: 01/01/19 13:25 DCW [id number]) Orientation Orientation/Cognition Orientation Name Birthday Month Date Year Place Situation Language Function Ability No Deficits Noted Safety Awareness Understands Safety Issues Memory Description No Deficits Noted Gross Range of Motion Upper Extremity ROM Assessment Within Functional Limits Lower Extremity ROM Assessment Right Impaired Impairments Pt able to move hip within limits of hip precautions Strength Upper Extremity Strength Assessment Within Functional Limits Lower Extremity Strength Assessment Left Impaired M6 PT-IP Treatment Start: 12/31/18 14:31 Freq: NEEDED Status: Active Protocol: Document 01/02/19 14:45 GGD (Rec: 01/02/19 15:06 GGD [id number]) Physical Therapy Treatment Exercises Exercises Ankle Pumps Gluteal Sets Quad Sets Heel Slides Supine Hip Abduction Seated Knee Flexion/Extension Education Education Provided Precautions M7 PT-IP Assessment and Plan Start: 12/31/18 14:31 Freq: NEEDED Status: Active Protocol: Document 01/02/19 14:45 GGD (Rec: 01/02/19 15:06 GGD [id number]) PT Summary Assessment and Plan Summary Assessment Summary Pt progressing tolerance to gait and distance. She need min cues for sit to stand with foot placement. She need mod cues for turns and hip precautions. Frequency of Treatment Frequency Of Treatment Twice a Day Treatment Plan Physical Therapy Treatment Plan Gait Training Therapeutic Exercise Post Op Education Other Recommendations and Next Treatment ambulation, ther ex. Focus Recommendations To Nursing Amount of Assist Needed Standby Assistance Discharge Recommendations PT Discharge Recommendations SNF Rehab
[2019-01-03] MEDS: HYDROCODONE/ACET 5/325 TABLET 1 TAB PO ×3 (01:34→11:54)
[2019-01-03] MEDS: LEVOTHYROXINE 112 MCG TABLET PO (05:45)
[2019-01-03] MEDS: ACETAMINOPHEN 325 MG TABLET 975 MG PO (05:45)
--- NOTE | 2019-01-03 07:33 | PM.DS.1 ---
History of Present Illness Date Patient Seen: 01/03/19 Chief complaint: [id number] Right Total Hip Arthroplasty Narrative: Patient seen bedside by Teetee Mcfarland PA-C. Pain is well controlled. No chest pain, shortness of breath. Patient ready for discharge to SNF today. Discharge Providers Date of admission: 12/31/18 08:15 Discharge Date: 01/03/19 Primary care physician: Kellie Martníez PA-C Consults: 12/31/18 12:55 Consult to Discharge Planning Routine Comment: Consult to Physical Therapy Evaluate & Treat Comment: Physician Instructions: post op SUSAN protocol Consult to Respiratory Therapy Evaluate & Treat Comment: Physician Instructions: Evaluate and treat Discharge provider: Charu Mcduffie PA-C Summary Discharge Diagnosis: Right hip osteoarthritis Hospital Course: Patient was admitted to the hospital on Patient tolerated the procedure well with no major complications. They were transferred to the acute care floor where they were placed on the standard joint replacement pathway and protocol. They were seen by physical therapy who recommended that they be discharged to a SNF. They were stable and ready for discharge on 01/03/19. Exam Vital Signs (past 8 hours): Oxygen Delivery Method Room Air Oxygen Flow Rate 0 Narrative Exam Narrative: Well-developed, well-nourished, no acute distress. Alert and oriented to person, place, and time. Dressing on operative hip is clean, dry, and intact with no signs of drainage. Minimal erythema and generalized swelling around the surgical site. Neurovascularly intact in the operative extremity with a soft and compressible calf. Range of motion of the operative ankle intact. Objective Labs Result Diagrams: 01/01/19 05:12 Discharge Plan Discharge Plan Patient Disposition: SNF Under care of provider: facility provider I certify the postop hospital nursing home care is medically necessary on a continuing basis for any conditions for which he/ she received care during this hospitalization.: Yes The receiving facility has agreed to accept transfer and provide medical treatment.: Yes Discharge Med Rec/Prescriptions Prescriptions: New hydrocodone-acetaminophen 5-325 mg Tablet 1 tab PO Q4HR PRN (Reason: Pain, Moderate (4-6)) 2 Days Qty: 12 RF: 0 ascorbic acid (vitamin C) [Vitamin C] 500 mg Tablet 500 mg PO DAILY Qty: 0 RF: 0 ferrous sulfate 325 mg (65 mg iron) Tablet 325 mg PO DAILY Qty: 0 RF: 0 hydroxyzine pamoate 25 mg Capsule 25 mg PO Q6HR PRN (Reason: Spasms) Qty: 0 RF: 0 enoxaparin [Lovenox] 40 mg/0.4 mL Syringe 40 mg subcut DAILY 6 Days Qty: 2.4 RF: 0 magnesium hydroxide [Milk of Magnesia] 400 mg/5 mL Suspension 30 ml PO NOW PRN (Reason: Constipation) Qty: 30 RF: 0 Continued azathioprine 50 mg Tablet 100 mg PO BID RF: 0 acetaminophen 325 MG tablet 325 mg PO PRN PRN (Reason: pain) Qty: 0 RF: 0 betamethasone dipropionate 0.05 % cream 1 gene Topical SEE INSTRUCTIONS Qty: 0 RF: 0 cholecalciferol (vitamin D3) [Vitamin D3] 5,000 unit Tablet 5,000 unit PO DAILY Qty: 0 RF: 0 [PROBIOTIC] 1 cap PO QDAY Qty: 0 RF: 0 cetirizine [Aller-Will] 10 mg tablet 10 mg PO DAILY PRN (Reason: m) RF: 0 Tylenol Sinus Severe 5-325-200 mg tablet 2 tab PO Q4-6H PRN (Reason: Systemic Signs And Symptoms) RF: 0 diltiazem HCl 240 mg capsule,extended release 24hr 240 mg PO QDAY Qty: 90 RF: 3 levothyroxine 112 mcg tablet 112 mcg PO QAM Qty: 90 RF: 3 Disabled Parking Permit 1 ea miscellaneous DIRECTED RF: 0 Follow up/Referrals: Kellie Martínez PA-C [Primary Care Provider] - Pascual Weiss MD [Physician] - (Follow up in the office at your previously scheduled post-operative appointment.) Discharge Health Status Multidrug resistant organism: No MDRO Precautions: [place] Provider Discharge Instructions Diet: Diet as Tolerated Activity: Weight bearing as tolerated, follow posterior hip precautions. Use walker until cleared by Physical therapy Cold/Heat Therapy: Apply ice to affected area for 20 minutes at a time at least hourly while awake. Other treatments: Please refer to [facility] path book for other questions and concerns Skin/Wound/Dressing Care Report to your healthcare provider any signs of infection, such as:: chills, fever, night sweats, increased pain, unusual drainage and unusual redness Dressing: Keep dressing clean, dry, and intact. May shower with it in place but no soaking. Special Rehabilitation Services Reason for rehabilitation: Post-operative therapy Rehab type: Physical therapy and Occupational therapy Visit Report/Discharge Packet Instructions: Hip Replacement, DI for Hip Replacement Stand Alone Forms: Surgery Discharge Discharge Data Primary Care Provider: Kellie Martínez Attending Provider: Pascual Weiss Admit Date/Time: 12/31/18 08:15 Discharges patient from system. Discharge Date/Time: 01/03/19 12:30 Quality VTE Deep Vein Thrombosis/Pulmonary Embolism Present on Admission: No
[2019-01-03 08:00] VITALS: BP 172/59; PULSE 67; RESP 18; TEMP 37.1; O2SAT 97
[2019-01-03] MEDS: MAGNESIUM HYDROXIDE 30 ML UDC PO (08:16)
[2019-01-03] MEDS: LACTOBACILLUS ACIDOPHILUS TABLET 1 EACH PO (08:19)
[2019-01-03] MEDS: ASCORBIC ACID 500 MG TABLET PO (08:19)
[2019-01-03] MEDS: azaTHIOprine 50 MG TABLET 100 MG PO (08:20)
[2019-01-03] MEDS: FERROUS SULFATE 325 MG TABLET PO (08:20)
[2019-01-03] MEDS: dilTIAZem CD 240 MG CAP PO (08:21)
[2019-01-03] MEDS: CHOLECALCIFEROL (VITAMIN D3) 5,000 UNIT TABLET 5000 UNIT PO (08:21)
--- NOTE | 2019-01-03 08:34 | CM.DPC ---
DCP Cont: Updated nurse, Mary, that patient is to go to [facility] today at noon pickling grader. She is working on giving patient something for her bowels. Charu Mcduffie, PAC, signed med sheets. Will have Jackelyn fax [facility] PASSR, med sheets, prescriptions, as well as discharge summary to [facility]. Patient is aware, alert this morning. P: Patient is to be picked up by [facility] at noon today. Gerda Solorzano RN/Business Risk Analyst
[2019-01-03] MEDS: SODIUM CHLORIDE 0.9% FLUSH 10 ML IV (09:23)
[2019-01-03] MEDS: ENOXAPARIN 40 MG/0.4 ML SYRINGE SUBCUT (09:23)
--- NOTE | 2019-01-03 09:47 | PC.NURSE ---
Addendum entered by Mary Rivas R.N. 01/03/19 12:48: TSF - [facility] transport arrived, belongings gathered, including glasses, clothing, shoes, cell phone and color receiver, own cane and fww, valuables from safe were accounted for and returned, paperwork provided to transport personnel, report called to Christian in admissions at [facility]. Addendum entered by Mary Rivas R.N. 01/03/19 12:06: PAIN - given norco 5/325mg x 1 tab with lunch prior to tsf. Original Note: AM NOTE - assist x 1 person up chair for breakfast, states r hip discomfort 4 on scale 0/10, ra 95%, HR 66, + bt and flatus, no bm since surg, discussed constipation and narcotics, given prune juice this am and spoke to Charu OSBORN and rec'd new orders for MOM and suppos, pt will wait until after PT for suppos, given norco tab x 1, later am up phys therapy, ambul w/fww into hallway, on return, slowly and gently removed the bulky dsg r hip as pt has hx auto immune skin disorder, no breakdown or blisters noted, some redness at margins, replaced with coversite dsg.
--- NOTE | 2019-01-03 09:50 | PT.IPTN ---
Current Diagnoses Unilateral primary osteoarthritis, right hip (12/31/18) Surgery Performed Operation Date: 12/31/18 10:15 Actual Procedures p Total Hip Arthroplasty(Right) - Pascual Weiss MD Physical Therapy Treatment Note M2 PT-IP Current Condition Start: 12/31/18 14:31 Freq: NEEDED Status: Active Protocol: Document 01/01/19 09:45 DCW (Rec: 01/01/19 13:25 DCW [id number]) Physical Therapy Current Condition Current Condition Evaluation Date 01/01/19 Treatment Diagnosis R SUSAN Onset Date 12/31/18 Precautions Posterior Hip Precautions No Hip Flexion > 90 degrees No Hip Internal Rotation No Hip Adduction Weight Bearing Status Weight Bearing Status Weight Bear as Tolerated M3 PT-IP Subjective Start: 12/31/18 14:31 Freq: NEEDED Status: Active Protocol: Document 01/03/19 09:45 SA (Rec: 01/03/19 09:50 SA [id number]) Subjective Physical Therapy Visit Type Type Treatment Note Visit Start Time 08:55 Visit Stop Time 09:30 Total Visit Minutes 35 Number of STANDARD MACHINE STITCHER Visits 4 Physical Therapy Visit Comments Patient Comments Pt up in chair, agreeable to PT. Patient Goals To return home after SNF stay. Therapy Pain Assessment Pain When Pain Assessed During Mobility Pain Present Pain Present Pain Reported Location Right Hip Intensity 3 Scale Used Numeric (1 - 10) Pain Management Techniques Apply Cold Timing of Activity with Medications M4 PT-IP Mobility and Gait Start: 12/31/18 14:31 Freq: NEEDED Status: Active Protocol: Document 01/03/19 09:45 SA (Rec: 01/03/19 09:50 SA [id number]) PT-Transfer Assessment Sit to and From Stand Sit to and from Stand Standby Assistance Equipment Transfer Assistive Device Gait Belt Front Wheeled Walker Orthotic/Prosthetic Devices or Brace: No Transfers Transfer Destination Chair Toilet Transfer Ability Level of Assist Contact Guard Assistance Comments Mobility Comments Pt SBA-CGA with transfers to toilet and chair, repeated sit to stands with cues for precautions and SBA. Gait Assessment Gait Gait Assistance Required: Standby Assistance Distance (Feet) 250 Able to Maintain Weight Bearing Status Yes During Gait Assistive Devices Assistive Device Gait Belt Front Wheeled Walker Orthotic/Prosthetic Devices or Brace: No Gait Deviations General Gait Pattern Antalgic Flexed Trunk Factors Limiting Gait Function Factors Limiting Gait Function Decreased Activity Tolerance Decreased Strength Limited Range of Motion Comments Gait Comments PT with step through gait pattern and safe use of FWW, able to correct flexed posture with cues. M5 PT-IP Objective Assessments Start: 12/31/18 14:31 Freq: NEEDED Status: Active Protocol: Document 01/01/19 09:45 DCW (Rec: 01/01/19 13:25 DCW [id number]) Orientation Orientation/Cognition Orientation Name Birthday Month Date Year Place Situation Language Function Ability No Deficits Noted Safety Awareness Understands Safety Issues Memory Description No Deficits Noted Gross Range of Motion Upper Extremity ROM Assessment Within Functional Limits Lower Extremity ROM Assessment Right Impaired Impairments Pt able to move hip within limits of hip precautions Strength Upper Extremity Strength Assessment Within Functional Limits Lower Extremity Strength Assessment Left Impaired M6 PT-IP Treatment Start: 12/31/18 14:31 Freq: NEEDED Status: Active Protocol: Document 01/03/19 09:45 SA (Rec: 01/03/19 09:50 [id number]) Physical Therapy Treatment Exercises Exercises Ankle Pumps Gluteal Sets Quad Sets Heel Slides Supine Hip Abduction Seated Knee Flexion/Extension Education Education Provided Precautions Other Treatments Other Treatment Performed Review of post hip precautions and expectations at SNF. M7 PT-IP Assessment and Plan Start: 12/31/18 14:31 Freq: NEEDED Status: Active Protocol: Document 01/03/19 09:45 (Rec: 01/03/19 09:50 [id number]) PT Summary Assessment and Plan Potential Rehabilitation Potential Excellent Status of Condition at Evaluation Stable Summary Assessment Summary Pt progressing well with safe use of FWW, decreasing pain levels and understanding of hip precautions, will benefit from short SNF stay and continued therapy. Frequency of Treatment Frequency Of Treatment Twice a Day Treatment Plan Physical Therapy Treatment Plan Gait Training Therapeutic Exercise Post Op Education Recommendations To Nursing Amount of Assist Needed Standby Assistance Discharge Recommendations PT Discharge Recommendations SNF Rehab
[2019-01-03] MEDS: BISACODYL 10 MG SUPP PR (10:02)
== END 2019-01-03 12:30 | DRG 470 ==
PROVIDERS: Admitting Provider Orthopaedic Surgery; PCP Physician Assistant; Visit Provider Orthopaedic Surgery
PROC: 0SR90JZ Replacement of Right Hip Joint with Synthetic Substitute, Open Approach (ICD-10-PCS; CPT 27130; principal; 2018-12-31 10:15)
DX: M16.11 Unilateral primary osteoarthritis, right hip (principal); L12.0 Bullous pemphigoid; D62 Acute posthemorrhagic anemia; E03.9 Hypothyroidism, unspecified; Z96.642 Presence of left artificial hip joint
CPT/HCPCS: 36415; 72170; 85014; 85018; 97110; 97116; 97161; 97530; C1776; J1100; J1650; J1885; J2270; J2274; J2405; J2704; J2795; J7500